=== PATIENT | female | born 1995 | race African-American/Black ===

== ENCOUNTER 2018-01-28 10:50 | Emergency (ER) | payer SELFPAY ==
--- NOTE | 2018-01-28 10:56 | PDOC ---
History of Present Illness - General Chief Complaint: Pain Stated Complaint: ABDOMINAL PAIN,chest pain Time Seen by Provider: 01/28/18 10:55 History Source: Patient Exam Limitations: No Limitations - History of Present Illness Initial Comments: 22 yo F no significant PMH presents with abdominal pain to LUQ since last night. She states she did not eat any bad foods, no sick contacts. She states it is associated with nausea but no vomiting. No fevers, chills, diarrhea. She has not had similar symptoms in the past. She has substernal chest pain but she has had that for 3 months intermittently. She has not sought evaluation for the chest pain in the past. Past History - Past Medical History Allergies/Adverse Reactions: Allergies Allergy/AdvReac Type Severity Reaction Status Date / Time No Known Allergies Allergy Verified 01/28/18 10:59 Home Medications: Ambulatory Orders NK [No Known Home Medication] 01/28/18 Review of Systems - Review of Systems Able to Perform ROS?: Yes Comments:: GENERAL/CONSTITUTIONAL: No fever or chills. No weakness. HEAD, EYES, EARS, NOSE AND THROAT: No change in vision. No ear pain or discharge. No sore throat. CARDIOVASCULAR: No chest pain or shortness of breath. RESPIRATORY: No cough, wheezing, or hemoptysis. GASTROINTESTINAL: Novomiting, diarrhea or constipation. +Abdominal pain, + nausea. GENITOURINARY: No dysuria, frequency, or change in urination. MUSCULOSKELETAL: No joint or muscle swelling or pain. No neck or back pain. SKIN: No rash NEUROLOGIC: No headache, vertigo, loss of consciousness, or change in strength/ sensation. ENDOCRINE: No increased thirst. No abnormal weight change. HEMATOLOGIC/LYMPHATIC: No anemia, easy bleeding, or history of blood clots. ALLERGIC/IMMUNOLOGIC: No hives or skin allergy. *Physical Exam - Physical Exam Comments: GENERAL: Awake, alert, and fully oriented, in no acute distress HEAD: No signs of trauma EYES: PERRLA, EOMI, sclera anicteric, conjunctiva clear ENT: Auricles normal inspection, hearing grossly normal, nares patent, oropharynx clear without exudates. Moist mucosa NECK: Normal ROM, supple, no lymphadenopathy, JVD, or masses LUNGS: Breath sounds equal, clear to auscultation bilaterally. No wheezes, and no crackles HEART: Regular rate and rhythm, normal S1 and S2, no murmurs, rubs or gallops ABDOMEN: Soft, +LUQ and epigastric tenderness, normoactive bowel sounds. No guarding, no rebound. No masses EXTREMITIES: Normal range of motion, no edema. No clubbing or cyanosis. No cords, erythema, or tenderness NEUROLOGICAL: Cranial nerves II through XII grossly intact. Normal speech, normal gait SKIN: Warm, Dry, normal turgor, no rashes or lesions noted. ED Treatment Course - LABORATORY CBC & Chemistry Diagram: 01/28/18 11:50 01/28/18 11:24 Medical Decision Making - Medical Decision Making 01/28/18 13:41 Pt with improvement in nausea, but still c/o abd pain. Will give IV tylenol. Based on tenderness in epigastric area, will obtain sono r/o acute isaiah, although suspicion is relatively low. 01/28/18 15:16 Pt sleeping comfortably. I woke her up to discuss, she states she is still having pain. I will give NSAID and reassess. 01/28/18 16:30 Pt reports improvement in symptoms s/p toradol. PO challenge offered, if she tolerates, will DC home. 01/28/18 17:12 Pt tolerated PO challenge. Stable for DC home. *DC/Admit/Observation/Transfer Diagnosis at time of Disposition: Abdominal pain Qualifiers: Abdominal location: unspecified location Qualified Code(s): R10.9 - Unspecified abdominal pain - Discharge Dispostion Disposition: HOME Condition at time of disposition: Stable Admit: No - Referrals - Patient Instructions Printed Discharge Instructions: DI for Abdominal Pain-Adult - Post Discharge Activity
[2018-01-28 11:13] VITALS: BMI 36.9
[2018-01-28] MEDS ORDERED: SODIUM CHLORIDE 1,000 ML IV STA (11:25)
[2018-01-28] MEDS ORDERED: ONDANSETRON 4 MG/2 ML VIAL IVPUSH ONE (11:25)
[2018-01-28 11:31] LABS: URINE APPEARANCE Clear; URINE BILIRUBIN Negative (NEGATIVE); URINE GLUCOSE (UA) Negative (NEGATIVE); URINE KETONE Negative (NEGATIVE); URINE LEUK ESTERASE Negative (NEGATIVE); URINE NITRITE Negative (NEGATIVE)
[2018-01-28 11:45] LABS: HCG,QUALITATIVE URINE NEGATIVE; URINE BLOOD 3+ (NEGATIVE); URINE COLOR YELLOW; URINE PROTEIN 1+ (NEGATIVE)
[2018-01-28] MEDS ORDERED: FAMOTIDINE 20 MG/50 ML IVPB 20 MG/50 ML MG IVPB ONE ×2 (11:45→11:56)
[2018-01-28] MEDS ORDERED: ONDANSETRON 4 MG/2 ML VIAL ONE (11:56)
[2018-01-28 12:20] LABS: EPI CELLS FEW /HPF; URINE BACTERIA NONE SEEN /hpf (NEGATIVE); URINE RBC 15-20 /hpf (0-3)
[2018-01-28 12:24] LABS: ALK PHOS 86 U/L (32-92); ANION GAP 7 (8-16); BILIRUBIN,TOTAL 0.8 mg/dl (0.2-1.0); BLOOD UREA NITROGEN 11 mg/dl (7-18); CALCIUM 8.8 mg/dl (8.4-10.2); CHLORIDE 102 mmol/L (98-107); CO2 25 mmol/L (22-28); GLUCOSE,RANDOM 81 mg/dl (74-106); POTASSIUM 3.6 mmol/L (3.5-5.1); SGOT/AST 19 U/L (10-42); SGPT/ALT 12 U/L (10-40); SODIUM 134 mmol/L (136-145); TOT PROT 7.7 g/dl (6.4-8.3)
[2018-01-28 12:34] LABS: CREATININE < 0.8 mg/dl (0.6-1.3)
--- NOTE | 2018-01-28 12:42 | EKG ---
Test Reason : Blood Pressure : / mmHG Vent. Rate : 088 BPM Atrial Rate : 088 BPM P-R Int : 160 ms QRS Dur : 084 ms QT Int : 376 ms P-R-T Axes : 025 058 045 degrees QTc Int : 454 ms NORMAL SINUS RHYTHM NONSPECIFIC T WAVE ABNORMALITY ABNORMAL ECG NO PREVIOUS ECGS AVAILABLE Confirmed by DEANNE BARBER MD ([id number]) on 01/28/2018 12:41:27 PM Referred By: Confirmed By:DEANNE BARBER MD
[2018-01-28 12:52] LABS: BASO % 0.3 % (0-2.0); EOS % 0.9 % (0-4.5); HEMATOCRIT 38.8 % (32.4-45.2); HEMOGLOBIN 12.8 GM/dL (10.7-15.3); LYMPH % 14.4 % (8-40); MCH 26.4 pg (25.7-33.7); MEAN CELL VOLUME 80.1 fl (80-96); MEAN PLT VOLUME 8.3 fl (7.5-11.1); MONO % 4.1 % (3.8-10.2); NEUT % 80.3 % (42.8-82.8); PLATELET COUNT 308 K/MM3 (134-434); RBC 4.85 M/mm3 (3.60-5.2); RDW 14.4 % (11.6-15.6)
[2018-01-28] MEDS ORDERED: ACETAMINOPHEN 1000 MG/100 ML VIAL (NON FORMULARY) IVPB ONE (13:41)
[2018-01-28] MEDS ORDERED: ACETAMINOPHEN INJECTION 100 ML IVPB ONE (13:55)
[2018-01-28] MEDS ORDERED: KETOROLAC TROMETHAMINE 30 MG/1 ML VIAL IVPUSH ONE (15:16)
[2018-01-28] MEDS ORDERED: KETOROLAC TROMETHAMINE 30 MG/1 ML VIAL ONE (15:19)
[2018-01-28 16:42] VITALS: BP 101/65; PULSE 77; TEMP 98.4
== END 2018-01-28 17:26 | disposition home or self-care (01) ==
LOC: FER 10:50
PROC: 3E033GC Introduction of Other Therapeutic Substance into Peripheral Vein, Percutaneous Approach (ICD-10-PCS; principal; 2018-01-28)
PROC: 3E0337Z Introduction of Electrolytic and Water Balance Substance into Peripheral Vein, Percutaneous Approach (ICD-10-PCS; 2018-01-28)
PROC: 3E0333Z Introduction of Anti-inflammatory into Peripheral Vein, Percutaneous Approach (ICD-10-PCS; 2018-01-28)
PROC: 3E033NZ Introduction of Analgesics, Hypnotics, Sedatives into Peripheral Vein, Percutaneous Approach (ICD-10-PCS; 2018-01-28)
DX: R10.9 Unspecified abdominal pain (principal)
CPT/HCPCS: 36415; 76700-TC; 80053; 81003; 81015; 82550; 82553; 83690; 84484; 84703; 85025; 93005; 99283-25; J0131; J7030